=== PATIENT | female | born 1935 | race Caucasian/White ===

== ENCOUNTER 2021-06-15 18:27 | Inpatient (IN) ==
[2021-06-15] MEDS ORDERED: Ondansetron 4 MG/2 ML VIAL IVP PRN (21:46)
[2021-06-15] MEDS ORDERED: Acetaminophen 325 MG TABLET PO PRN (21:46)
[2021-06-15] MEDS ORDERED: Naloxone 0.4 MG/ML INJ IVP PRN (21:46)
[2021-06-15] MEDS ORDERED: Dextrose 4 GM Chewable Tablets PO PRN ×2 (22:12)
[2021-06-15] MEDS ORDERED: D5% in Water 1,000 ML IVC PRN (22:12)
[2021-06-15] MEDS ORDERED: *HR* Dextrose 50 % in Water (Syg) 50 ML SYRINGE IVP PRN (22:12)
[2021-06-15] MEDS ORDERED: Saliva Stimulant 44.3ml BOTTLE PO PRN (22:15)
[2021-06-15] MEDS ORDERED: Sennosides/Docusate Sodium TABLET PO PRN (22:15)
[2021-06-15] MEDS: *HR* HYDROcodone/Acet 5/325 mg TABLET PO PRN (22:35)
[2021-06-15] MEDS: cefTRIAXone 1,000 MG in 0.9 % Sodium Chloride Mini Bag 100 ML IVPB SCH (22:37)
[2021-06-15] MEDS: Ringers Solution, Lactated 1,000 ML IVC SCH (22:37)
[2021-06-16] MEDS ORDERED: Perflutren Lipid Microsphere 1.3 ML in 0.9 % Sodium Chloride 8.7 ML IVP PRN (01:59)
[2021-06-16 04:59] LABS: INR 1.2; Prothrombin Time 13.5 Seconds (9.4-12.1)
[2021-06-16 05:00] LABS: Hematocrit 37.4 % (35.3-44.9); Hemoglobin 12.6 g/dL (11.5-15.4); Immature Platelets 2.6 % (1.1-6.1); Mean Corpuscular HGB Conc 33.7 g/dL (31.6-35.5); Mean Corpuscular Volume 92.1 fL (83.0-100.0); Mean Platelet Volume 9.9 fL (9.4-12.4); Red Blood Count 4.06 M/mcL (3.82-4.97); Red Cell Distribution Width 13.3 % (11.5-14.5); White Blood Count 6.8 K/mcL (4.3-11.1)
[2021-06-16 05:02] LABS: Activated Partial Thrombo Time 28.1 Seconds (26.0-36.0)
[2021-06-16 05:08] LABS: Calcium 8.9 mg/dL (8.6-10.3); Phosphorous 3.8 mg/dL (2.7-4.5); Potassium 3.7 mEq/L (3.5-5.1)
[2021-06-16 05:35] LABS: Folate 5.3 ng/mL (3.0-16.0)
[2021-06-16 05:44] LABS: Estimated Average Glucose 123 mg/dl; Hemoglobin A1C 5.9 %
[2021-06-16] MEDS ORDERED: *HR* Enoxaparin 40 MG/0.4 ML SYRINGE SQ SCH (06:00)
[2021-06-16] MEDS: cefTRIAXone 1,000 MG in 0.9 % Sodium Chloride Mini Bag 100 ML IVPB SCH (10:45)
[2021-06-16] MEDS: Aspirin 81 MG TAB.CHEW PO SCH (10:46)
[2021-06-16] MEDS: Multivit/Ca/Min/Fe/FA 1 TAB TABLET PO SCH (10:46)
[2021-06-16] MEDS: Cholecalciferol (D-3) 1,000 UNIT (25MCG) TABLET PO SCH (10:46)
[2021-06-16] MEDS: Lactobacillus 1 EACH CAP.SPRINK PO SCH ×2 (10:46→20:46)
[2021-06-16] MEDS: BuPROPion XL (24 HR) 150 MG TABLET PO SCH (10:46)
[2021-06-16] MEDS: polyethylene glycoL 3350 17 GM POWD.PACK PO SCH (10:47)
[2021-06-16] MEDS: *HR* OxyCODONE Immed Rel 5 MG TABLET PO PRN ×2 (15:07→20:46)
[2021-06-16] MEDS: *HR* Heparin 5,000 UNIT/ML VIAL SQ SCH ×2 (15:07→20:47)
[2021-06-16] MEDS: Melatonin 3 MG TABLET PO PRN (20:47)
[2021-06-17] MEDS: *HR* Heparin 5,000 UNIT/ML VIAL SQ SCH ×3 (05:29→20:38)
[2021-06-17 05:50] LABS: Hemoglobin 12.2 g/dL (11.5-15.4); Immature Granulocytes % 0.2 % (0-4); Mean Corpuscular Volume 93.9 fL (83.0-100.0); Red Cell Distribution Width 13.5 % (11.5-14.5)
[2021-06-17 05:52] LABS: Basophils % 0.7 %; Eosinophils # 0.2 K/mcL (0.0-0.6); Eosinophils % 3.6 %; Hematocrit 37.1 % (35.3-44.9); Immature Platelets 2.7 % (1.1-6.1); Lymphocytes % 18.8 %; Mean Corpuscular HGB Conc 32.9 g/dL (31.6-35.5); Mean Corpuscular Hemoglobin 30.9 pg (28.0-33.3); Monocytes # 0.3 K/mcL (0.0-1.3); Monocytes % 6.9 %; Neutrophils # 3.1 K/mcL (1.6-8.9); Platelet Count 103 K/mcL (140-400); Red Blood Count 3.95 M/mcL (3.82-4.97); Segmented Neutrophils % 69.8 %; White Blood Count 4.5 K/mcL (4.3-11.1)
[2021-06-17 06:05] LABS: Lymphocytes # 0.9 K/mcL (0.6-4.6)
[2021-06-17] MEDS: *HR* HYDROcodone/Acet 5/325 mg TABLET PO PRN (10:42)
[2021-06-17] MEDS: Multivit/Ca/Min/Fe/FA 1 TAB TABLET PO SCH (10:42)
[2021-06-17] MEDS: Lactobacillus 1 EACH CAP.SPRINK PO SCH ×2 (10:42→20:38)
[2021-06-17] MEDS: Cholecalciferol (D-3) 1,000 UNIT (25MCG) TABLET PO SCH (10:42)
[2021-06-17] MEDS: Aspirin 81 MG TAB.CHEW PO SCH (10:42)
[2021-06-17] MEDS: Metoprolol XL (24 HR) Succ 50 MG TAB.ER.24H PO SCH (10:43)
[2021-06-17] MEDS: cefTRIAXone 1,000 MG in 0.9 % Sodium Chloride Mini Bag 100 ML IVPB SCH (10:43)
[2021-06-17] MEDS: BuPROPion XL (24 HR) 150 MG TABLET PO SCH (10:43)
[2021-06-17] MEDS: polyethylene glycoL 3350 17 GM POWD.PACK PO SCH (10:43)
[2021-06-17] MEDS: *HR* OxyCODONE Immed Rel 5 MG TABLET PO PRN (20:37)
[2021-06-17] MEDS: Melatonin 3 MG TABLET PO PRN (20:38)
[2021-06-18] MEDS: *HR* OxyCODONE Immed Rel 5 MG TABLET PO PRN ×2 (04:01→09:05)
[2021-06-18 04:46] LABS: Basophils % 0.9 %; Eosinophils # 0.2 K/mcL (0.0-0.6); Eosinophils % 6.3 %; Hematocrit 35.8 % (35.3-44.9); Hemoglobin 11.7 g/dL (11.5-15.4); Immature Granulocytes % 0.3 % (0-4); Lymphocytes # 1.1 K/mcL (0.6-4.6); Lymphocytes % 32.7 %; Mean Corpuscular HGB Conc 32.7 g/dL (31.6-35.5); Mean Corpuscular Volume 94.7 fL (83.0-100.0); Mean Platelet Volume 9.7 fL (9.4-12.4); Monocytes # 0.3 K/mcL (0.0-1.3); Monocytes % 8.1 %; Neutrophils # 1.7 K/mcL (1.6-8.9); Platelet Count 103 K/mcL (140-400); Red Blood Count 3.78 M/mcL (3.82-4.97); Red Cell Distribution Width 13.5 % (11.5-14.5); Segmented Neutrophils % 51.7 %; White Blood Count 3.3 K/mcL (4.3-11.1)
[2021-06-18 05:08] LABS: Calcium 8.5 mg/dL (8.6-10.3); Potassium 3.9 mEq/L (3.5-5.1)
[2021-06-18] MEDS: *HR* Heparin 5,000 UNIT/ML VIAL SQ SCH ×3 (06:13→21:45)
[2021-06-18] MEDS: Aspirin 81 MG TAB.CHEW PO SCH (09:03)
[2021-06-18] MEDS: cefTRIAXone 1,000 MG in 0.9 % Sodium Chloride Mini Bag 100 ML IVPB SCH (09:04)
[2021-06-18] MEDS: Lactobacillus 1 EACH CAP.SPRINK PO SCH ×2 (09:04→19:56)
[2021-06-18] MEDS: BuPROPion XL (24 HR) 150 MG TABLET PO SCH (09:04)
[2021-06-18] MEDS: polyethylene glycoL 3350 17 GM POWD.PACK PO SCH (09:04)
[2021-06-18] MEDS: Cholecalciferol (D-3) 1,000 UNIT (25MCG) TABLET PO SCH (09:04)
[2021-06-18] MEDS: Multivit/Ca/Min/Fe/FA 1 TAB TABLET PO SCH (09:05)
[2021-06-18] MEDS: Metoprolol XL (24 HR) Succ 50 MG TAB.ER.24H PO SCH (09:12)
[2021-06-18] MEDS: *HR* HYDROcodone/Acet 5/325 mg TABLET PO PRN (18:22)
[2021-06-18] MEDS: Ringers Solution, Lactated 1,000 ML IVC SCH (20:09)
[2021-06-19] MEDS: *HR* Heparin 5,000 UNIT/ML VIAL SQ SCH ×2 (05:29→13:19)
[2021-06-19] MEDS: *HR* OxyCODONE Immed Rel 5 MG TABLET PO PRN (05:41)
[2021-06-19] MEDS: Aspirin 81 MG TAB.CHEW PO SCH (07:33)
[2021-06-19] MEDS: BuPROPion XL (24 HR) 150 MG TABLET PO SCH (07:33)
[2021-06-19] MEDS: Lactobacillus 1 EACH CAP.SPRINK PO SCH (07:33)
[2021-06-19] MEDS: Cholecalciferol (D-3) 1,000 UNIT (25MCG) TABLET PO SCH (07:33)
[2021-06-19] MEDS: Metoprolol XL (24 HR) Succ 50 MG TAB.ER.24H PO SCH (07:34)
[2021-06-19] MEDS: cefTRIAXone 1,000 MG in 0.9 % Sodium Chloride Mini Bag 100 ML IVPB SCH ×2 (07:34→08:20)
[2021-06-19] MEDS: Multivit/Ca/Min/Fe/FA 1 TAB TABLET PO SCH (07:34)
[2021-06-19] MEDS: polyethylene glycoL 3350 17 GM POWD.PACK PO SCH (07:35)
[2021-06-19 07:44] LABS: Basophils % 0.7 %; Eosinophils # 0.2 K/mcL (0.0-0.6); Eosinophils % 6.5 %; Hematocrit 36.1 % (35.3-44.9); Hemoglobin 11.8 g/dL (11.5-15.4); Immature Granulocytes % 0.3 % (0-4); Lymphocytes % 33.8 %; Mean Corpuscular HGB Conc 32.7 g/dL (31.6-35.5); Mean Corpuscular Hemoglobin 31.3 pg (28.0-33.3); Mean Corpuscular Volume 95.8 fL (83.0-100.0); Mean Platelet Volume 9.9 fL (9.4-12.4); Monocytes # 0.3 K/mcL (0.0-1.3); Monocytes % 9.9 %; Neutrophils # 1.4 K/mcL (1.6-8.9); Platelet Count 111 K/mcL (140-400); Red Blood Count 3.77 M/mcL (3.82-4.97); Red Cell Distribution Width 13.2 % (11.5-14.5); Segmented Neutrophils % 48.8 %; White Blood Count 2.9 K/mcL (4.3-11.1)
[2021-06-19 09:05] LABS: Calcium 8.6 mg/dL (8.6-10.3); Potassium 3.9 mEq/L (3.5-5.1)
[2021-06-19] MEDS: *HR* HYDROcodone/Acet 5/325 mg TABLET PO PRN (13:19)
[2021-06-19 13:26] LABS: Influenza A PCR Negative (Negative); Influenza B PCR Negative (Negative); Resp. Syncytial Virus PCR Negative (Negative)
[2021-06-19 13:44] LABS: SARS-CoV-2 by PCR (In House) Negative (Negative)
[2021-06-19 15:24] VITALS: BP 155/88; PULSE 62; TEMP 97.6; O2SAT 97
== END 2021-06-19 16:42 | DRG 552 ==
LOC: 4WAOSI → SUATTDRO 21:21
PROVIDERS: ADMIT Internal Medicine; ATTEND Hospitalist